=== PATIENT | female | born 1955 | race Caucasian/White ===

== ENCOUNTER 2023-02-22 07:57 | Emergency (ER) | payer BC ==
[2023-02-22] MEDS ORDERED: Ondansetron 4 MG/2 ML SDV ONE (08:19)
[2023-02-22] MEDS ORDERED: Lactated Ringers 1,000 ML ONE (08:19)
[2023-02-22] MEDS ORDERED: Lactated Ringers 1,000 ML IV SCH (08:30)
[2023-02-22 08:45] LABS: BASOPHILS ABSOLUTE AUTO 0.01 K/mm3 (0.01-0.08); BASOPHILS PERCENT AUTO 0.1 % (0.1-1.2); EOSINOPHILS ABSOLUTE AUTO 0.03 K/mm3 (0.04-0.36); EOSINOPHILS PERCENT AUTO 0.2 (0.7-5.8); HEMATOCRIT 41.7 % (34.1-44.9); HEMOGLOBIN 13.5 gm/dl (11.2-15.7); IMMATURE GRAN ABSOLUTE AUTO 0.03 K/mm3 (0.00-0.10); IMMATURE GRAN PERCENT AUTO 0.2 % (<=1.0); LYMPHOCYTES ABSOLUTE AUTO 2.22 K/mm3 (1.18-3.74); MEAN CORPUSCULAR HEMOGLOBIN 28.8 pg (25.6-32.2); MEAN CORPUSCULAR HGB CONC 32.4 g/dl (32.2-35.5); MEAN CORPUSCULAR VOLUME 89.1 fl (79.4-94.8); MEAN PLATELET VOLUME 11.5 fl (9.4-12.3); MONOCYTES ABSOLUTE AUTO 1.06 K/mm3 (0.24-0.36); MONOCYTES PERCENT AUTO 8.6 % (4.7-12.5); NEUTROPHILS ABSOLUTE AUTO 8.97 K/mm3 (1.56-6.13); NEUTROPHILS PERCENT AUTO 72.9 % (34.0-71.1); PLATELET COUNT,PLT 383 K/mm3 (182-369); RED BLOOD CELL COUNT 4.68 M/mm3 (3.98-5.22); WHITE BLOOD CELL COUNT,WBC 12.32 K/mm3 (3.98-10.04)
[2023-02-22 09:05] LABS: ANION GAP 16.2 (5-15); BILIRUBIN TOTAL 0.8 mg/dL (0.2-1.0); CALCIUM 9.5 mg/dL (8.5-10.1); CREATININE 1.3 mg/dL (0.55-1.02); EST CRCL DRUG DOSING (CG) 30.16 mL/min; POTASSIUM,K 3.2 mEq/L (3.5-5.1); PROTEIN TOTAL,TP 8.2 g/dl (6.4-8.2)
[2023-02-22] MEDS ORDERED: Ondansetron 4 MG/2 ML SDV IVPUSH ONE (10:16)
[2023-02-22] MEDS ORDERED: Potassium Chloride 10 MEQ Tab.ER PO ONE (10:17)
== END 2023-02-22 11:58 | disposition home or self-care (01) ==
LOC: JD.ED 07:57 → EDBD 07:57 → JD.ED 11:58
DX: S06.0X0A Concussion without loss of consciousness, initial encounter (principal); S16.1XXA Strain of muscle, fascia and tendon at neck level, initial encounter; R11.2 Nausea with vomiting, unspecified; Z79.82 Long term (current) use of aspirin; W10.9XXA Fall (on) (from) unspecified stairs and steps, initial encounter
CPT/HCPCS: 36415; 70450; 72125; 72128; 80053; 82947; 83735; 85025; 96361; 96374; 99284; A9270; J2405; J7120